=== PATIENT | female | born 1955 | race Asian ===

== ENCOUNTER 2017-08-01 10:16 | Emergency (ER) | payer OTHER ==
[~2017-08-01] VITALS: Ht 157.5 cm; Wt 63.5 kg
[2017-08-01 10:20] VITALS: Ht 157.5 cm; Wt 63.5 kg
[2017-08-01 11:01] LABS: BASOPHIL % 0.2 % (0-2); PLATELET COUNT 256 x10^3mcL (130-400); RED CELL DISTRIBUTION WIDTH 13.8 % (11.5-14.5)
[2017-08-01] MEDS ORDERED: CLARITIN10 MG PO (11:02)
[2017-08-01] MEDS ORDERED: LIPI20 PO (11:02)
[2017-08-01] MEDS ORDERED: [UNRECOGNIZED DRUG - OTHER] PO (11:02)
[2017-08-01 11:06] LABS: microscopic required? NO
[2017-08-01 11:32] LABS: UA SPECIFIC GRAVITY 1.015 (1.005-1.035); urine erythrocyte NEGATIVE (NEGATIVE)
[2017-08-01 11:46] LABS: CALCIUM 8.9 mg/dL (8.5-10.1); CARBON DIOXIDE 28.7 mmol/L (21-32); CHLORIDE SERUM 103 mmol/L (98-107); CREATININE SERUM 0.6 mg/dL (0.6-1.0); GFR1 > 60 mL/min; GLUCOSE SERUM 141 mg/dL (74-106); POTASSIUM SERUM 3.7 mmol/L (3.5-5.1); SODIUM SERUM 140 mmol/L (136-145)
[2017-08-01 11:50] LABS: ALBUMIN 3.9 g/dL (3.4-5.0); ALKALINE PHOSPHATASE 97 U/L (46-116); ALT/SGPT 30 U/L (14-59); AST/SGOT 19 U/L (15-37); BILIRUBIN TOTAL 0.4 mg/dL (0.20-1.00); TOTAL PROTEIN, SERUM 7.4 g/dL (6.4-8.2)
[2017-08-01 11:51] LABS: AMPHETAMINE QUAL UR NONE DETECTED (NEG <=1000)
[2017-08-01 14:21] LABS: PHOSPHOROUS 3.9 mg/dL (2.5-4.9)
[2017-08-01 14:26] LABS: T3 TOTAL 1.05 ng/mL
[2017-08-01 14:29] LABS: CHOLESTEROL/HDL RATIO 1.9
[2017-08-01 14:30] LABS: FREE T4 1.1 ng/dL (0.76-1.46); FREE THYROXINE INDEX 2.7 ug/dL (1.4-4.5); T4(THYROXINE) 8.2 ug/dL (4.7-13.3)
[2017-08-01 16:43] VITALS: BP 106/71
== END 2017-08-01 17:40 | disposition short-term general hospital (02) ==
LOC: ED 10:16 → DU 13:27 → ED 13:27
PROVIDERS: Emergency Medicine; Family Medicine Sports Medicine
DX: R41.82 Altered mental status, unspecified (principal); R56.9 Unspecified convulsions
CPT/HCPCS: 83880; 84439; J1953; J2060; J3490